=== PATIENT | male | born 1990 ===

== ENCOUNTER 2022-11-04 07:10 | Day surgery (SDC) | payer OTHER ==
[~2022-11-04] VITALS: Ht 182.9 cm; Wt 104.3 kg
[2022-11-04] MEDS ORDERED: AYR SALINE50 ML NASAL (14:26)
[2022-11-04] MEDS ORDERED: CEPHALEXIN500 MG PO (14:26)
== END 2022-11-04 17:45 | disposition home or self-care (01) ==
LOC: CIR.AMB 07:10
PROVIDERS: ATTEND Otolaryngology Otology & Neurotology
DX: J32.4 Chronic pansinusitis (principal); J34.2 Deviated nasal septum; J34.3 Hypertrophy of nasal turbinates; Z20.822 Contact with and (suspected) exposure to COVID-19

== ENCOUNTER 2022-11-04 07:18 | Outpatient (CLI) | payer OTHER ==
[2022-11-04] MEDS ORDERED: CEPHALEXIN500 MG PO (14:26)
[2022-11-04] MEDS ORDERED: AYR SALINE50 ML NASAL (14:26)
== END 2022-11-04 07:19 | disposition home or self-care (01) ==
LOC: LAB 07:18
PROVIDERS: ATTEND Otolaryngology Otology & Neurotology
DX: Z20.822 Contact with and (suspected) exposure to COVID-19 (principal)